=== PATIENT | female | born 1960 | race Caucasian/White ===

== ENCOUNTER → 2017-10-19 | Outpatient (CLI) | payer OTHER | LOC: HYPER 10-17 07:10 | DX: L89.324 Pressure ulcer of left buttock, stage 4 (principal); G35 Multiple sclerosis; K21.9 Gastro-esophageal reflux disease without esophagitis; M48.00 Spinal stenosis, site unspecified; M19.90 Unspecified osteoarthritis, unspecified site; G81.90 Hemiplegia, unspecified affecting unspecified side; F32.9 Major depressive disorder, single episode, unspecified; Z87.891 Personal history of nicotine dependence ==

== ENCOUNTER → 2017-11-02 | Outpatient (CLI) | payer OTHER | LOC: HYPER 07:03 | DX: L89.324 Pressure ulcer of left buttock, stage 4 (principal); G35 Multiple sclerosis; M86.2 Subacute osteomyelitis; G81.90 Hemiplegia, unspecified affecting unspecified side; M19.90 Unspecified osteoarthritis, unspecified site; K21.9 Gastro-esophageal reflux disease without esophagitis; F32.9 Major depressive disorder, single episode, unspecified; Z87.891 Personal history of nicotine dependence ==

== ENCOUNTER → 2017-11-15 | Outpatient (CLI) | payer OTHER | LOC: HYPER 11-14 16:15 | DX: L89.324 Pressure ulcer of left buttock, stage 4 (principal); M48.00 Spinal stenosis, site unspecified; M86.2 Subacute osteomyelitis; K21.9 Gastro-esophageal reflux disease without esophagitis; G35 Multiple sclerosis; G81.90 Hemiplegia, unspecified affecting unspecified side; M19.90 Unspecified osteoarthritis, unspecified site; F32.9 Major depressive disorder, single episode, unspecified; Z87.891 Personal history of nicotine dependence ==

== ENCOUNTER → 2017-12-01 | Outpatient (CLI) | payer OTHER | LOC: HYPER 10:30 | DX: L89.324 Pressure ulcer of left buttock, stage 4 (principal); G35 Multiple sclerosis; M48.00 Spinal stenosis, site unspecified; M86.2 Subacute osteomyelitis; K21.9 Gastro-esophageal reflux disease without esophagitis; F32.9 Major depressive disorder, single episode, unspecified; M19.90 Unspecified osteoarthritis, unspecified site; Z87.891 Personal history of nicotine dependence ==

== ENCOUNTER → 2017-12-14 | Outpatient (CLI) | payer OTHER | LOC: HYPER 12-01 08:23 | DX: L89.324 Pressure ulcer of left buttock, stage 4 (principal); M48.00 Spinal stenosis, site unspecified; M86.2 Subacute osteomyelitis; K21.9 Gastro-esophageal reflux disease without esophagitis; M19.90 Unspecified osteoarthritis, unspecified site; G81.90 Hemiplegia, unspecified affecting unspecified side; G35 Multiple sclerosis; F32.9 Major depressive disorder, single episode, unspecified; Z87.891 Personal history of nicotine dependence ==

== ENCOUNTER → 2018-01-05 | Outpatient (CLI) | payer OTHER, MEDICARE | LOC: HYPER 07:32 | DX: L89.324 Pressure ulcer of left buttock, stage 4 (principal); M48.00 Spinal stenosis, site unspecified; G35 Multiple sclerosis; M86.2 Subacute osteomyelitis; K21.9 Gastro-esophageal reflux disease without esophagitis; F32.9 Major depressive disorder, single episode, unspecified; M19.90 Unspecified osteoarthritis, unspecified site; Z87.891 Personal history of nicotine dependence ==

== ENCOUNTER → 2018-01-26 | Outpatient (CLI) | payer OTHER, MEDICARE | LOC: HYPER 08:04 | DX: L89.324 Pressure ulcer of left buttock, stage 4 (principal); M86.2 Subacute osteomyelitis; K21.9 Gastro-esophageal reflux disease without esophagitis; M48.00 Spinal stenosis, site unspecified; M19.90 Unspecified osteoarthritis, unspecified site; G35 Multiple sclerosis; G81.90 Hemiplegia, unspecified affecting unspecified side; F32.9 Major depressive disorder, single episode, unspecified; Z87.891 Personal history of nicotine dependence ==

== ENCOUNTER → 2018-02-15 | Outpatient (CLI) | payer OTHER, MEDICARE | LOC: HYPER 07:03 | DX: L89.324 Pressure ulcer of left buttock, stage 4 (principal); M86.2 Subacute osteomyelitis; M48.00 Spinal stenosis, site unspecified; G35 Multiple sclerosis; K21.9 Gastro-esophageal reflux disease without esophagitis; F32.9 Major depressive disorder, single episode, unspecified; M19.90 Unspecified osteoarthritis, unspecified site; Z87.891 Personal history of nicotine dependence ==

== ENCOUNTER → 2018-03-08 | Outpatient (CLI) | payer OTHER, MEDICARE | LOC: HYPER 06:32 | DX: L89.324 Pressure ulcer of left buttock, stage 4 (principal); M48.00 Spinal stenosis, site unspecified; M86.2 Subacute osteomyelitis; K21.9 Gastro-esophageal reflux disease without esophagitis; M19.90 Unspecified osteoarthritis, unspecified site; G35 Multiple sclerosis; G81.90 Hemiplegia, unspecified affecting unspecified side; F32.9 Major depressive disorder, single episode, unspecified; Z87.891 Personal history of nicotine dependence ==

== ENCOUNTER → 2018-03-29 | Outpatient (CLI) | payer OTHER, MEDICARE | LOC: HYPER 07:12 | DX: L89.324 Pressure ulcer of left buttock, stage 4 (principal); M86.2 Subacute osteomyelitis; K21.9 Gastro-esophageal reflux disease without esophagitis; M19.90 Unspecified osteoarthritis, unspecified site; M48.00 Spinal stenosis, site unspecified; G35 Multiple sclerosis; G81.91 Hemiplegia, unspecified affecting right dominant side; F32.9 Major depressive disorder, single episode, unspecified; F41.9 Anxiety disorder, unspecified; Z87.891 Personal history of nicotine dependence ==

== ENCOUNTER → 2018-05-14 | Outpatient (CLI) | payer OTHER, MEDICARE | LOC: HYPER 07:09 | DX: L89.324 Pressure ulcer of left buttock, stage 4 (principal); M86.2 Subacute osteomyelitis; G35 Multiple sclerosis; K21.9 Gastro-esophageal reflux disease without esophagitis; G81.90 Hemiplegia, unspecified affecting unspecified side; M48.00 Spinal stenosis, site unspecified; M19.90 Unspecified osteoarthritis, unspecified site; F32.9 Major depressive disorder, single episode, unspecified; F41.9 Anxiety disorder, unspecified; Z87.891 Personal history of nicotine dependence ==

== ENCOUNTER → 2018-06-06 | Outpatient (CLI) | payer OTHER, MEDICARE | LOC: HYPER 06:35 | DX: L89.324 Pressure ulcer of left buttock, stage 4 (principal); M86.2 Subacute osteomyelitis; G35 Multiple sclerosis; G81.90 Hemiplegia, unspecified affecting unspecified side; K21.9 Gastro-esophageal reflux disease without esophagitis; M48.00 Spinal stenosis, site unspecified; M19.90 Unspecified osteoarthritis, unspecified site; F41.9 Anxiety disorder, unspecified; F32.9 Major depressive disorder, single episode, unspecified; Z87.891 Personal history of nicotine dependence ==

== ENCOUNTER → 2018-07-18 | Outpatient (CLI) | payer OTHER, MEDICARE | LOC: HYPER 06-27 06:51 | DX: L89.324 Pressure ulcer of left buttock, stage 4 (principal); M86.2 Subacute osteomyelitis; G35 Multiple sclerosis; G81.90 Hemiplegia, unspecified affecting unspecified side; K21.9 Gastro-esophageal reflux disease without esophagitis; M48.00 Spinal stenosis, site unspecified; M19.90 Unspecified osteoarthritis, unspecified site; F32.9 Major depressive disorder, single episode, unspecified; F41.9 Anxiety disorder, unspecified; Z87.891 Personal history of nicotine dependence ==

== ENCOUNTER → 2018-08-20 | Outpatient (CLI) | payer OTHER, MEDICARE | LOC: HYPER 06:53 | DX: L89.324 Pressure ulcer of left buttock, stage 4 (principal); M86.2 Subacute osteomyelitis; G35 Multiple sclerosis; G81.90 Hemiplegia, unspecified affecting unspecified side; K21.9 Gastro-esophageal reflux disease without esophagitis; M48.00 Spinal stenosis, site unspecified; M19.90 Unspecified osteoarthritis, unspecified site; F32.9 Major depressive disorder, single episode, unspecified; F41.9 Anxiety disorder, unspecified; Z87.891 Personal history of nicotine dependence ==

== ENCOUNTER → 2018-09-17 | Outpatient (CLI) | payer OTHER, MEDICARE | LOC: HYPER 07:17 | DX: L89.324 Pressure ulcer of left buttock, stage 4 (principal); M86.2 Subacute osteomyelitis; G35 Multiple sclerosis; G81.90 Hemiplegia, unspecified affecting unspecified side; K21.9 Gastro-esophageal reflux disease without esophagitis; M19.90 Unspecified osteoarthritis, unspecified site; M48.00 Spinal stenosis, site unspecified; F41.9 Anxiety disorder, unspecified; F32.9 Major depressive disorder, single episode, unspecified; Z87.891 Personal history of nicotine dependence ==

== ENCOUNTER → 2018-10-22 | Outpatient (CLI) | payer OTHER, MEDICARE | LOC: HYPER 06:47 | DX: L89.324 Pressure ulcer of left buttock, stage 4 (principal); M86.2 Subacute osteomyelitis; G35 Multiple sclerosis; G81.90 Hemiplegia, unspecified affecting unspecified side; K21.9 Gastro-esophageal reflux disease without esophagitis; M48.00 Spinal stenosis, site unspecified; M19.90 Unspecified osteoarthritis, unspecified site; F32.9 Major depressive disorder, single episode, unspecified; F41.9 Anxiety disorder, unspecified; Z87.891 Personal history of nicotine dependence ==

== ENCOUNTER → 2018-11-26 | Outpatient (CLI) | payer OTHER, MEDICARE | LOC: HYPER 06:49 | DX: L89.324 Pressure ulcer of left buttock, stage 4 (principal); M86.2 Subacute osteomyelitis; M48.00 Spinal stenosis, site unspecified; K21.9 Gastro-esophageal reflux disease without esophagitis; M19.90 Unspecified osteoarthritis, unspecified site; G35 Multiple sclerosis; G81.90 Hemiplegia, unspecified affecting unspecified side; F41.9 Anxiety disorder, unspecified; F32.9 Major depressive disorder, single episode, unspecified; Z87.891 Personal history of nicotine dependence ==

== ENCOUNTER → 2018-12-24 | Outpatient (CLI) | payer OTHER, MEDICARE | LOC: HYPER 06:47 | DX: L89.324 Pressure ulcer of left buttock, stage 4 (principal); M86.2 Subacute osteomyelitis; G35 Multiple sclerosis; M48.00 Spinal stenosis, site unspecified; F41.9 Anxiety disorder, unspecified; F32.9 Major depressive disorder, single episode, unspecified; Z87.891 Personal history of nicotine dependence ==

== ENCOUNTER → 2019-01-09 | Outpatient (CLI) | payer OTHER, MEDICARE | LOC: HYPER 06:40 | DX: L89.324 Pressure ulcer of left buttock, stage 4 (principal); M86.2 Subacute osteomyelitis; G35 Multiple sclerosis; K21.9 Gastro-esophageal reflux disease without esophagitis; M19.90 Unspecified osteoarthritis, unspecified site; M48.00 Spinal stenosis, site unspecified; F32.9 Major depressive disorder, single episode, unspecified; F41.9 Anxiety disorder, unspecified; Z87.891 Personal history of nicotine dependence ==

== ENCOUNTER → 2019-01-21 | Outpatient (CLI) | payer OTHER, MEDICARE | LOC: HYPER 06:49 | DX: L89.324 Pressure ulcer of left buttock, stage 4 (principal); M48.00 Spinal stenosis, site unspecified; G35 Multiple sclerosis; M86.2 Subacute osteomyelitis; G81.90 Hemiplegia, unspecified affecting unspecified side; K21.9 Gastro-esophageal reflux disease without esophagitis; M19.90 Unspecified osteoarthritis, unspecified site; F41.9 Anxiety disorder, unspecified; F32.9 Major depressive disorder, single episode, unspecified; Z87.891 Personal history of nicotine dependence ==

== ENCOUNTER → 2019-02-04 | Outpatient (CLI) | payer OTHER, MEDICARE | LOC: HYPER 06:39 | DX: L89.324 Pressure ulcer of left buttock, stage 4 (principal); M48.00 Spinal stenosis, site unspecified; G35 Multiple sclerosis; M86.2 Subacute osteomyelitis; M54.2 Cervicalgia; D64.9 Anemia, unspecified; N31.9 Neuromuscular dysfunction of bladder, unspecified; R25.9 Unspecified abnormal involuntary movements; M62.838 Other muscle spasm; M51.9 Unspecified thoracic, thoracolumbar and lumbosacral intervertebral disc disorder; G81.90 Hemiplegia, unspecified affecting unspecified side; K21.9 Gastro-esophageal reflux disease without esophagitis; M19.90 Unspecified osteoarthritis, unspecified site; F32.9 Major depressive disorder, single episode, unspecified; F41.9 Anxiety disorder, unspecified; Z87.891 Personal history of nicotine dependence ==

== ENCOUNTER → 2019-03-07 | Outpatient (CLI) | payer OTHER, MEDICARE | LOC: HYPER 06:57 | DX: L89.324 Pressure ulcer of left buttock, stage 4 (principal); M48.00 Spinal stenosis, site unspecified; G35 Multiple sclerosis; M86.2 Subacute osteomyelitis; M54.2 Cervicalgia; D64.9 Anemia, unspecified; N31.9 Neuromuscular dysfunction of bladder, unspecified; M62.838 Other muscle spasm; M51.9 Unspecified thoracic, thoracolumbar and lumbosacral intervertebral disc disorder; K21.9 Gastro-esophageal reflux disease without esophagitis; M19.90 Unspecified osteoarthritis, unspecified site; R25.9 Unspecified abnormal involuntary movements; G81.90 Hemiplegia, unspecified affecting unspecified side; F41.9 Anxiety disorder, unspecified; F32.9 Major depressive disorder, single episode, unspecified; Z87.891 Personal history of nicotine dependence ==

== ENCOUNTER → 2019-03-25 | Outpatient (CLI) | payer OTHER, MEDICARE | LOC: HYPER 06:55 | DX: L89.324 Pressure ulcer of left buttock, stage 4 (principal); M48.00 Spinal stenosis, site unspecified; M86.2 Subacute osteomyelitis; M54.2 Cervicalgia; N31.9 Neuromuscular dysfunction of bladder, unspecified; M62.838 Other muscle spasm; M51.9 Unspecified thoracic, thoracolumbar and lumbosacral intervertebral disc disorder; K21.9 Gastro-esophageal reflux disease without esophagitis; M19.90 Unspecified osteoarthritis, unspecified site; D64.9 Anemia, unspecified; G81.90 Hemiplegia, unspecified affecting unspecified side; G35 Multiple sclerosis; R25.9 Unspecified abnormal involuntary movements; F32.9 Major depressive disorder, single episode, unspecified; Z87.891 Personal history of nicotine dependence ==

== ENCOUNTER → 2019-04-16 | Outpatient (CLI) | payer OTHER, MEDICARE | LOC: HYPER 07:03 | DX: L89.324 Pressure ulcer of left buttock, stage 4 (principal); T24.011A Burn of unspecified degree of right thigh, initial encounter; M48.00 Spinal stenosis, site unspecified; G35 Multiple sclerosis; M86.2 Subacute osteomyelitis; D64.9 Anemia, unspecified; N31.9 Neuromuscular dysfunction of bladder, unspecified; M62.838 Other muscle spasm; M54.2 Cervicalgia; M51.9 Unspecified thoracic, thoracolumbar and lumbosacral intervertebral disc disorder; G81.90 Hemiplegia, unspecified affecting unspecified side; K21.9 Gastro-esophageal reflux disease without esophagitis; M19.90 Unspecified osteoarthritis, unspecified site; R25.9 Unspecified abnormal involuntary movements; F41.9 Anxiety disorder, unspecified; F32.9 Major depressive disorder, single episode, unspecified; Z87.891 Personal history of nicotine dependence; X08.8XXA Exposure to other specified smoke, fire and flames, initial encounter; Y93.89 Activity, other specified; Y92.89 Other specified places as the place of occurrence of the external cause; Y99.8 Other external cause status ==

== ENCOUNTER → 2019-05-08 | Outpatient (CLI) | payer OTHER, MEDICARE | LOC: HYPER 06:48 | DX: L89.324 Pressure ulcer of left buttock, stage 4 (principal); M48.00 Spinal stenosis, site unspecified; G35 Multiple sclerosis; G81.91 Hemiplegia, unspecified affecting right dominant side; D64.9 Anemia, unspecified; M86.2 Subacute osteomyelitis; N31.9 Neuromuscular dysfunction of bladder, unspecified; M51.9 Unspecified thoracic, thoracolumbar and lumbosacral intervertebral disc disorder; M62.838 Other muscle spasm; M54.2 Cervicalgia; R25.9 Unspecified abnormal involuntary movements; K21.9 Gastro-esophageal reflux disease without esophagitis; M19.90 Unspecified osteoarthritis, unspecified site; F41.9 Anxiety disorder, unspecified; F32.9 Major depressive disorder, single episode, unspecified; Z87.891 Personal history of nicotine dependence ==

== ENCOUNTER → 2019-06-19 | Outpatient (CLI) | payer OTHER, MEDICARE | LOC: HYPER 08:10 | DX: L89.324 Pressure ulcer of left buttock, stage 4 (principal); M48.00 Spinal stenosis, site unspecified; M54.2 Cervicalgia; D64.9 Anemia, unspecified; N31.9 Neuromuscular dysfunction of bladder, unspecified; M62.838 Other muscle spasm; M51.9 Unspecified thoracic, thoracolumbar and lumbosacral intervertebral disc disorder; K21.9 Gastro-esophageal reflux disease without esophagitis; M19.90 Unspecified osteoarthritis, unspecified site; G35 Multiple sclerosis; G81.90 Hemiplegia, unspecified affecting unspecified side; R25.9 Unspecified abnormal involuntary movements; F32.9 Major depressive disorder, single episode, unspecified; F41.9 Anxiety disorder, unspecified; Z87.891 Personal history of nicotine dependence ==

== ENCOUNTER → 2019-07-08 | Outpatient (CLI) | payer OTHER, MEDICARE | LOC: HYPER 05-29 17:13 | DX: L89.324 Pressure ulcer of left buttock, stage 4 (principal); M48.00 Spinal stenosis, site unspecified; G35 Multiple sclerosis; M86.2 Subacute osteomyelitis; M54.2 Cervicalgia; D64.9 Anemia, unspecified; N31.9 Neuromuscular dysfunction of bladder, unspecified; K21.9 Gastro-esophageal reflux disease without esophagitis; M62.838 Other muscle spasm; M51.9 Unspecified thoracic, thoracolumbar and lumbosacral intervertebral disc disorder; G81.90 Hemiplegia, unspecified affecting unspecified side; M19.90 Unspecified osteoarthritis, unspecified site; R25.9 Unspecified abnormal involuntary movements; F32.9 Major depressive disorder, single episode, unspecified; F41.9 Anxiety disorder, unspecified; Z87.891 Personal history of nicotine dependence ==

== ENCOUNTER → 2019-08-05 | Outpatient (CLI) | payer OTHER, MEDICARE | LOC: HYPER 10:01 | DX: L89.324 Pressure ulcer of left buttock, stage 4 (principal); M48.00 Spinal stenosis, site unspecified; G35 Multiple sclerosis; M86.2 Subacute osteomyelitis; D64.9 Anemia, unspecified; N31.9 Neuromuscular dysfunction of bladder, unspecified; M62.838 Other muscle spasm; M51.9 Unspecified thoracic, thoracolumbar and lumbosacral intervertebral disc disorder; G81.91 Hemiplegia, unspecified affecting right dominant side; K21.9 Gastro-esophageal reflux disease without esophagitis; M19.90 Unspecified osteoarthritis, unspecified site; F32.9 Major depressive disorder, single episode, unspecified; F41.9 Anxiety disorder, unspecified; Z87.891 Personal history of nicotine dependence ==

== ENCOUNTER → 2019-09-02 | Outpatient (CLI) | payer OTHER, MEDICARE | LOC: HYPER 09:14 | DX: T81.89XA Other complications of procedures, not elsewhere classified, initial encounter (principal); L89.324 Pressure ulcer of left buttock, stage 4; G35 Multiple sclerosis; K21.9 Gastro-esophageal reflux disease without esophagitis; M48.00 Spinal stenosis, site unspecified; M19.90 Unspecified osteoarthritis, unspecified site; M51.9 Unspecified thoracic, thoracolumbar and lumbosacral intervertebral disc disorder; M54.2 Cervicalgia; M86.2 Subacute osteomyelitis; G81.90 Hemiplegia, unspecified affecting unspecified side; D64.9 Anemia, unspecified; N31.9 Neuromuscular dysfunction of bladder, unspecified; F32.9 Major depressive disorder, single episode, unspecified; F41.9 Anxiety disorder, unspecified; Z87.891 Personal history of nicotine dependence; Y92.89 Other specified places as the place of occurrence of the external cause; Y83.8 Other surgical procedures as the cause of abnormal reaction of the patient, or of later complication, without mention of misadventure at the time of the procedure ==

== ENCOUNTER → 2019-09-30 | Outpatient (CLI) | payer OTHER, MEDICARE | LOC: HYPER 10:43 | DX: L89.324 Pressure ulcer of left buttock, stage 4 (principal); G35 Multiple sclerosis; M48.00 Spinal stenosis, site unspecified; M86.2 Subacute osteomyelitis; R25.9 Unspecified abnormal involuntary movements; M62.838 Other muscle spasm; M51.9 Unspecified thoracic, thoracolumbar and lumbosacral intervertebral disc disorder; G81.91 Hemiplegia, unspecified affecting right dominant side; K21.9 Gastro-esophageal reflux disease without esophagitis; F41.9 Anxiety disorder, unspecified; F32.9 Major depressive disorder, single episode, unspecified; Z87.891 Personal history of nicotine dependence ==

== ENCOUNTER → 2019-10-28 | Outpatient (CLI) | payer OTHER, MEDICARE | LOC: HYPER 10:04 | DX: L89.324 Pressure ulcer of left buttock, stage 4 (principal); M48.00 Spinal stenosis, site unspecified; G35 Multiple sclerosis; M86.2 Subacute osteomyelitis; M54.2 Cervicalgia; D64.9 Anemia, unspecified; N31.9 Neuromuscular dysfunction of bladder, unspecified; R25.9 Unspecified abnormal involuntary movements; M62.838 Other muscle spasm; M51.9 Unspecified thoracic, thoracolumbar and lumbosacral intervertebral disc disorder; K21.9 Gastro-esophageal reflux disease without esophagitis; M19.90 Unspecified osteoarthritis, unspecified site; F32.9 Major depressive disorder, single episode, unspecified; F41.9 Anxiety disorder, unspecified; Z87.891 Personal history of nicotine dependence ==

== ENCOUNTER → 2020-01-13 | Outpatient (CLI) | payer OTHER, MEDICARE | LOC: HYPER 08:20 | DX: L89.324 Pressure ulcer of left buttock, stage 4 (principal); G35 Multiple sclerosis; E66.9 Obesity, unspecified; D64.9 Anemia, unspecified; N31.9 Neuromuscular dysfunction of bladder, unspecified; R25.9 Unspecified abnormal involuntary movements; M86.2 Subacute osteomyelitis; M54.2 Cervicalgia; M48.00 Spinal stenosis, site unspecified; M62.838 Other muscle spasm; K21.9 Gastro-esophageal reflux disease without esophagitis; M19.90 Unspecified osteoarthritis, unspecified site; M51.9 Unspecified thoracic, thoracolumbar and lumbosacral intervertebral disc disorder; F32.9 Major depressive disorder, single episode, unspecified; F41.9 Anxiety disorder, unspecified; Z87.891 Personal history of nicotine dependence; Z68.31 Body mass index [BMI] 31.0-31.9, adult ==